=== PATIENT | female | born 1980 ===

== ENCOUNTER 2017-12-23 11:13 | Outpatient (CLI) | payer OTHER | END 2017-12-23 11:14 | disposition home or self-care (01) | LOC: SC 11:13 | PROVIDERS: ATTEND Internal Medicine Pulmonary Disease | DX: G47.30 Sleep apnea, unspecified (principal); G47.10 Hypersomnia, unspecified; R06.83 Snoring; G47.8 Other sleep disorders | CPT/HCPCS: 99203; 99212 ==

== ENCOUNTER 2018-01-25 20:36 | Outpatient (CLI) | payer OTHER | END 2018-01-25 20:37 | disposition home or self-care (01) | LOC: SC 20:36 | PROVIDERS: ATTEND Internal Medicine Pulmonary Disease | DX: G47.61 Periodic limb movement disorder (principal); R06.81 Apnea, not elsewhere classified; R06.83 Snoring | CPT/HCPCS: 95810 ==

== ENCOUNTER 2018-03-11 09:14 | Outpatient (CLI) | payer OTHER | END 2018-03-11 09:15 | disposition home or self-care (01) | LOC: SC 09:14 | PROVIDERS: ATTEND Nurse Practitioner Family | DX: R06.83 Snoring (principal); G47.00 Insomnia, unspecified; G47.61 Periodic limb movement disorder | CPT/HCPCS: 99212; 99214 ==